=== PATIENT | male | born 1950 | race Caucasian/White ===

== ENCOUNTER → 2019-08-03 | Day surgery (SDC) | payer MEDICARE, OTHER | END | disposition home or self-care (01) | LOC: MSO 07:24 | DX: Z12.11 Encounter for screening for malignant neoplasm of colon (principal); I10 Essential (primary) hypertension; Z87.891 Personal history of nicotine dependence; Z79.899 Other long term (current) drug therapy | CPT/HCPCS: G0121; 00812; J2704; J7120 ==

== ENCOUNTER → 2022-01-25 | Outpatient (CLI) | payer MEDICARE, OTHER | LOC: RAD 07:56 | DX: Z13.6 Encounter for screening for cardiovascular disorders (principal) ==